=== PATIENT | male | born 1960 | race Caucasian/White ===

== ENCOUNTER 2016-08-16 14:23 | Emergency (ER) | payer BC ==
[~2016-08-16] VITALS: Ht 177.8 cm; Wt 82.0 kg
[~2016-08-16 14:23] MED LIST: ACET1TAB12 PO; ASPI81TA2 PO; CEPH-583 PO; DICY10CA13 PO; OMEP10CA4 PO; ROSU10TA PO; UBID1CAP47 PO; VIT1CAPS21 PO
[2016-08-16 14:25] VITALS: TEMP 97; Ht 177.8 cm; Wt 82.0 kg
--- NOTE | 2016-08-16 14:25 | NUR ---
PROVIDER DR. GARCÍA IN TRIAGE ROOM WITH PT.
--- OUTSIDE RECORDS SUMMARY | 2016-08-16 14:27 | XMS REPORT | Continuity of Care Document ---
Author Author [facility] Organization [facility] Address Unknown Phone Unavailable Allergies Active Description Code Type Severity Reaction Onset Reported/Identified Relationship to Patient Clinical Status Yes No Known Allergies Drug Allergy N/A N/A 08/09/2013 Yes No Known Drug Allergies Drug Allergy N/A N/A 08/09/2013 Yes No Known Food Allergies Food Allergy N/A N/A 08/09/2013 Yes No Known Medication Allergies NKMA N/A N/A 03/28/2014 Medications Problems Date Dx Coded Attending Type Code Diagnosis Diagnosed By 08/09/2013 Mesfin Rachel MD Final 414.01 COR -JENA VESSEL 08/09/2013 Mesfin Rachel MD Final 519.9 RESP SYSTEM DISEASE NOS 08/09/2013 Mesfin Rachel MD Final 530.81 ESOPHAGEAL REFLUX 08/09/2013 Mesfin Rachel MD Final 564.1 IRRITABLE BOWEL SYNDROME 08/09/2013 Mesfin Rachel MD Final 728.85 MUSCLE SPASM 08/09/2013 Mesfin Rachel MD Admitting 786.50 CHEST PAIN NOS 08/09/2013 Mesfin Rachel MD Final 786.59 CHEST PAIN NEC 08/09/2013 Mesfin Rachel MD Final 794.31 NONSPECIFIC ABN EKG/ECG 08/11/2013 Jonh Mckeon MD Final 272.4 HYPERLIPIDEMIA NEC NOS 08/11/2013 Jonh Mckeon MD Final 413.9 ANGINA PECTORIS NEC NOS 08/11/2013 Jonh Mckeon MD 786.50 CHEST PAIN NOS 08/11/2013 Jonh Mckeon MD Admitting 786.59 CHEST PAIN NEC 08/11/2013 Jonh Mckeon MD Final 794.31 NONSPECIFIC ABN EKG/ECG 08/12/2013 Mesfin Rachel MD Final 414.01 COR -JENA VESSEL 08/12/2013 Mesfin Rachel MD Final 564.1 IRRITABLE BOWEL SYNDROME 08/12/2013 Mesfin Rachel MD Final 786.2 COUGH 08/12/2013 Mesfin Rachel MD Final 786.59 CHEST PAIN NEC 08/12/2013 Mesfin Rachel MD Final 794.31 NONSPECIFIC ABN EKG/ECG Procedures Code Description Performed By Performed On 37.22 LEFT HEART CARDIAC CATH Mesfin Rachel MD 08/09/2013 88.53 LT HEART ANGIOCARDIOGRAM Mesfin Rachel MD 08/09/2013 88.56 COR ARTERIOGRAM-2 CATH Mesfin Rachel MD 08/09/2013 Results Encounters ACCT No. Visit Date/Time Discharge Status Pt. Type Provider Facility Loc./Unit Complaint [id number] 08/12/2013 14:18:00 08/12/2013 23 :59:59 CLS Outpatient
--- OUTSIDE RECORDS SUMMARY | 2016-08-16 14:28 | XMS REPORT | Continuity of Care Document ---
Author Author [facility] Organization [facility] Address Unknown Phone Unavailable Care Team Providers Care Tacking Machine Operator Name Role Phone KATLIN BECERRA MD Primary Care Physician [phone] Insurance Providers Guarantor [place] Address [address] [place] [address] Email [email or web address] Policy Number [id number] Subscriber's Name [place] Earl Relationship 18 Self Group Number [id number] Chief Complaint and Reason for Visit Chief Complaint Ear Pain/Injury Reason for Visit Tinnitus Problems Active Problems Medical Problem Onset Date Status Tinnitus Unknown Acute Past Problems Medical Problem Onset Date Tinnitus Unknown Medications Current Home Medications Medication Dose Units Route Directions Days Qty Instructions Start Date Acetaminophen With Codeine (Tylenol With Codeine #3 Tablet) 300-30 Tablet 1-2 Tab Oral Every 4-6 Hours Prn as needed for Pain 20 Tablet 07/30/16 Aspirin 81 Mg Tab.chew 1 Tab Oral Daily 04/26/15 Cephalexin (Keflex) 500 Mg Capsule 500 Mg Oral One Time 1 Capsule 07/30/16 Dicyclomine Hcl 10 Mg Capsule 1 Cap Oral Daily 90 04/25/15 Omeprazole 10 Mg Capsule 10 Mg Oral Daily 04/26/15 Rosuvastatin Calcium (Crestor) 10 Mg Tablet 10 Mg Oral Bedtime Take 1 tablet, by mouth, one time a day at bedtime. 04/25/15 Ubidecarenone/Vit E Acetate (Co Q-10 100 Mg Softgel) 1 Each Capsule 1 Cap Oral Daily 04/25/15 Vit C/Vit E/Lutein/Min/[place]-3 (Ocuvite Softgel) 1 Each Capsule 1 Cap Oral Daily 07/29/16 Social History Social History Problem Response Recorded Date/Time Onset Date Status Chewing Tobacco Status No 08/09/2013 5:52am Not Applicable Not Applicable Hx Substance Use No 07/29/2016 2:23pm Not Applicable Not Applicable Hx Alcohol Use Y OCCASIONALLY 07/29/2016 2:23pm Not Applicable Not Applicable Has the pt used tobacco in the last 12 months No 07/29/2016 2:23pm Not Applicable Not Applicable Tobacco Usage none 08/09/2013 6:26am Not Applicable Not Applicable Hospital Discharge Instructions No hospital discharge instructions. Plan of Care Discharge Date 08/11/16 4:51pm Disposition 01 DISCHARGED HOME, SELF-CARE Condition at Discharge Stable Instructions/Education Provided Tinnitus (ED) Prescriptions See Medication Section Referrals KATLIN BECERRA MD Address: [address] [place] [address] [phone] Additional Instructions/Education Follow with primary care provider. If you're having any worsening symptoms go to the emergency department. Functional Status No functional status results. Allergies, Adverse Reactions, Alerts Allergen Type Severity Reaction Status Last Updated No Known Drug Allergies Allergy Unknown Active 08/11/16 Immunizations Query Response on File Recorded Date/Time Hx Influenza Vaccination Y fall 201507/29/16 2:23pm Hx Pneumococcal Vaccination No 07/29/16 2:23pm Hx Influenza Vaccination Y fall 201507/29/16 2:23pm Influenza Vaccine Hx 02/201608/11/16 4:24pm Tetanus Diptheria Vaccine History UNKNOWN 08/11/16 4:24pm Vital Signs Acute Vital Signs Vital Response Date/Time Temperature (Fahrenheit) 97.4 deg F (96.8 - 99.1) 08/11/2016 4:21pm Temperature (Calculated Celsius) 36.75936 degrees C (36.0 - 37.3) 08/11/2016 4:21pm Temperature Source Temporal 07/30/2016 12:20pm Pulse Rate (adult) 59 bpm (60 - 100) 08/11/2016 4:21pm Respiratory Rate 16 breaths/min (10 - 20) 07/30/2016 1:50pm O2 Sat by Pulse Oximetry 96 % (90 - 100) 08/11/2016 4:21pm Oxygen Delivery Method Room Air 07/30/2016 1:50pm Oxygen Flow Rate 1.00 L/min 07/30/2016 12:35pm Blood Pressure 99/59 mm Hg 08/11/2016 4:21pm Blood Pressure Source Automatic Cuff 07/30/2016 1:50pm Height (Feet) 5 feet 08/11/2016 4:21pm Height (Inches) 10.00 inches 08/11/2016 4:21pm Weight (Kilograms) 82.600 kg 08/11/2016 4:21pm Body Mass Index (BMI) 26.0 08/11/2016 4:21pm Results No known relevant diagnostic tests, laboratory data and/or discharge summary. Procedures Procedure Status Date Provider(s) Revision of upper eyelid Completed 07/30/16 MICHAEL HYMAN MD [id number]"INJECTION, MIDAZOLAM HYDROCHLORIDE, PER 1 MG" Completed 07/30/16"INJECTION, MIDAZOLAM HYDROCHLORIDE, PER 1 MG" Completed 07/30/16"INJECTION, FENTANYL CITRATE, 0.1 MG" Completed 07/30/16"INJECTION, FENTANYL CITRATE, 0.1 MG" Completed 07/30/16"RINGERS LACTATE INFUSION, UP TO 1000 CC" Completed 07/30/16 Encounters Encounter Location Arrival/Admit Date Discharge/Depart Date Attending Provider Departed Emergency Room [facility] 08/11/16 4:15pm 08/11/16 4: 51pm ASHLEY HENDRIX APRN Departed Surgical Day Care [facility] 07/30/16 7:46am 07/30/16 2: 00pm MICHAEL HYMAN MD Recent Diagnosis
--- OUTSIDE RECORDS SUMMARY | 2016-08-16 14:28 | XMS REPORT | Continuity of Care Document ---
Author Author [facility] Organization [facility] Address Unknown Phone Unavailable Allergies Active Description [...] 08/09/2013 Mesfin Rachel MD Final 414.01 COR -KALTAG VESSEL 08/09/2013 Mesfin Rachel MD Final 519.9 [...] 08/12/2013 Mesfin Rachel MD Final 414.01 COR -KALTAG VESSEL 08/12/2013 Mesfin Rachel MD Final 564.1 IRRITABLE BOWEL SYNDROME 08/12/2013 Mesfin Rachel MD Final 786.2 COUGH 08/12/2013 Mefsin Rachel MD Final 786.59 CHEST PAIN NEC 08/12/2013 Mesfin Rachel MD Final 794.31 NONSPECIFIC ABN EKG/ECG Procedures Code Description Performed By Performed On 37.22 LEFT HEART CARDIAC CATH Mesfin Rachel MD 08/09/2013 88.53 LT HEART ANGIOCARDIOGRAM Mesfin Rachel MD 08/09/2013 88.56 COR ARTERIOGRAM-2 CATH Mesfin Rachel MD 08/09/2013 Results Encounters ACCT No. Visit Date/Time Discharge Status Pt. Type Provider Facility Loc./Unit Complaint [id number] 08/12/2013 14:18:00 08/12/2013 23 :59:59 CLS Outpatient
--- NOTE | 2016-08-16 14:35 | NUR ---
RADIOLOGY PT TO RADIOLOGY PER WC
--- NOTE | 2016-08-16 14:37 | ERPDOC ---
Departure Disposition Decision Date: Aug 16, 2016 Disposition Decision Time: 15:51 Disposition: 01 DISCHARGED HOME, SELF-CARE Impression Impression Impression: Primary Impression: Closed head injury Qualified Codes: S09.90XA - Unspecified injury of head, initial encounter Additional Impression: Laceration Severity: Mild Condition: Improved Seen By: Physician only Referrals: KATLIN BECERRA MD (PCP/Family) 2 Days Patient Instructions: Head Injury (ED) Problems/Meds/Labs Reviewed?: Yes Medications reviewed and manag: Yes Follow up care ordered?: Yes Mental Status: Alert, Oriented HPI - Head Injury General Chief Complaint: Head Injury Stated Complaint: HEAD INJURY Time Seen by Provider: 14:29 Source: patient Exam Limitations: no limitations HPI - Head Injury Initial Comments 56-year-old male presents the emergency department with a chief complaint of a closed head injury and laceration to the forehead. 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 Patient notes mild dull discomfort locally at the site of laceration only. He denies any loss of consciousness, headache, or neck pain. Patient denies any other injuries. No other complaints or associated symptoms. There is no radiation of discomfort. He stopped the bleeding with direct pressure. Patient was at home mending fence when the incident occurred. Symptoms have improved in nature since onset. Patient is unsure of the date of his last tetanus vaccine. Occurred At: home Onset: Constant Allergies: Coded Allergies: No Known Drug Allergies (Verified Allergy, Unknown, 08/16/16) Past History Past Medical History Pt denies signifigant PMH Surgical History Denies Surgeries Family History Family History: Negative Vaccines Hx Influenza Vaccination: Yes (FALL 2015) Hx Pneumococcal Vaccination: No Social History Smoking Status: Never smoker Does patient use chewing tobac: No Second Hand Exposure: No Substance Use Type: does not use Substance last used: unknown Alcohol Intake: none, occasionally Review of Systems Constitutional Constitutional: DENIES: chills, fever Eyes General: DENIES: erythema, exudate Lids/Accessories: DENIES: erythema, swelling Vision: DENIES: acuity, blurring ENMT Ears: DENIES: drainage, erythema Hearing: DENIES: hearing loss Balance: DENIES: ataxia, falling to one side Sinuses: DENIES: congestion, pain Nose: DENIES: nosebleeds, pain Mouth/Throat: DENIES: painful swallowing, sore throat Teeth: DENIES: pain Jaw: DENIES: pain Cardiovascular Cardiac: DENIES: chest pain, dyspnea on exertion Rhythm/Rate: DENIES: irregular beat, palpitations Vascular: DENIES: pedal edema, unilateral swelling Pulmonary Respiratory: DENIES: cough, dyspnea, pleuritic chest pain, sputum GI Upper Abdomen: DENIES: nausea, pain, vomiting Lower Abdomen: DENIES: diarrhea, pain General: DENIES: dysuria, pain Musculoskeletal General: DENIES: pain, tenderness Integumentary Skin: DENIES: itching, rash Neurological General: DENIES: headache, numbness, weakness Psychiatric Psychiatric: DENIES: emotional instability, suicidal ideation/attempt Endocrine Endocrine: DENIES: polydipsia, polyphagia Hematologic/Lymphatic Hematologic/Lymphatic: DENIES: frequent nosebleeds, lymphadenopathy Allergic/Immunological Allergic/Immunoligical: DENIES: allergic reactions, hives Physical Exam General General Nourishment: well nourished, well developed, appears stated age, no acute distress, adult General Body Habitus: well groomed Vitals and Pain First Documented Vital Signs Date Time Temp Pulse Resp B/P Pulse Ox O2 Delivery O2 Flow Rate FiO2 08/16/16 14:25 97.0 99 14 126/85 97 Room Air Weight: Kilograms: Height (feet): 5 Height (inches): 10.00 Triage Pain Scale: RN VS reviewed by Provider: Yes Normal Exams: Eyes: Pupils are PERRLA w/ EOMI, No scleral icterus, irritation, or foreign bodies noted ENMT: No facial trauma, nasal exudates, pharyngeal erythema, or exudates are noted Dental: No fractured, loose, or missing teeth noted Neck: Full range of motion, without adenopathy, JVD, bruits or thyromegaly Chest/Resp: Clear all flores, with good airflow, and symmetry bilaterally CV: Regular rate and rhythm, without murmur or gallop, Pulses 2+ all extremities, capillary refill, <2 seconds all ext., no pedal edema noted Abdomen: Bowel sounds positive, soft, non-tender, non-distended, no hepatosplenomegaly, masses or bruits noted Lymphatic: No lymphadenopathy, or lymphedema noted Musculoskeletal: No tenderness, or deformity noted, good range of motion, all extremities Integumentary: No rashes, hives, or bruising noted, hair and nails, without abnormality Neurologic: Patient is alert, and oriented, cranial nerves, motor/sensory/ cerebellar, exams w/o gross deficits, to observation Psychiatric: Patient exhibits, appropriate attention, emotion and affect ENMT (brief) Comments No raccoon eyes, Carter sign, hemotympanum or CSF leak. Mid face is stable. No malocclusion of the jaw. Neck (brief) Neck: NOT FOUND: tenderness Integumentary (brief) Comments 3 cm T-shaped laceration. Superficial. Clean. Linear. Irregularly-shaped. No foreign body. No tendon involvement. Distal neurovascular intact. No active bleeding. Neurologic (brief) Comments Alert and oriented 4. CN 2-12 intact. Sensation intact. Strength normal. Gait normal. Normal coordination. Normal speech. Reflexes 2/4 in all extremities. Absent Babinski bilaterally. Normal motor. No Focal neurologic deficit. Differential Diagnoses Considering: Concussion, Contusion, Skull Fracture, Other (laceration ) Procedures Laceration/Wound Repair Wound/Laceration Repair : Wound Location: head Wound Length (cm): 3 Depth, Shape: superficial Explored: clean Irrigated: saline Anesthesia: 1% Lidocaine Type of Block: local Repaired With: Sutures Suture Size: 5:0 Suture Type: ethilon Number of Sutures: 6 Progress Results/Orders Orders Procedure Category Date Status Time Ct Head W/O Contrast CT 08/16/16 Taken 14:29 Lidocaine 1% PHA 08/16/16 Complete (Xylocaine 1%) 15:30 Tetanus,Diphth,A PHA 08/16/16 Complete Pertus (Tdap) (Adacel) 16:00 Medications Current ED Medications Lidocaine HCl (Xylocaine 1%) 100 mg O ONCE INFIL Last administered on 15:26; Start 08/16/16 at 15:30; Stop 08/16/16 at 15:31; Status DC Diphtheria/ Tetanus/Acell Pertussis (Adacel) 0.5 ml O ONCE IM Last administered on 08/16/16 16:02; Start 08/16/16 at 16:00; Stop 08/16/16 at 16:01 ; Status DC Progress Progress Imaging is discussed in detail with the patient and questions are answered. Patient was given a tetanus booster. Patient's wound was repaired with good approximation by myself. Patient is discharged home in improved condition. Patient is to follow up as instructed. Patient is to return to the emergency Department if his condition worsens or changes in any manner. Patient is in agreement with the current plan of management. Patient is to follow up in 2 days for a wound check. Strict return precautions are provided. CT CT : CT: Head no contrast Interpretation: Normal, Interpreted by Me, Reviewed Written Report BETHANY GARCÍA DO Aug 16, 2016 14:37
--- OUTSIDE RECORDS SUMMARY | 2016-08-16 14:45 | XMS REPORT | Continuity of Care Document ---
Author Author [facility] Organization [facility] Address Unknown Phone Unavailable Allergies Active [...] 08/09/2013 Mesfin Rachel MD Final 414.01 COR -OSAGE VESSEL 08/09/2013 Mesfin Rachel MD Final 519.9 [...] 08/12/2013 Mesfin Rachel MD Final 414.01 COR -OSAGE VESSEL 08/12/2013 Mesfin Rachel MD Final 564.1 [...] Status Pt. Type Provider Facility Loc./Unit Complaint [id number] 08/12/2013 14:18:00 08/12/2013 23 :59:59 CLS Outpatient
--- OUTSIDE RECORDS SUMMARY | 2016-08-16 14:46 | XMS REPORT | Continuity of Care Document ---
Author Author [facility] Organization [facility] Address Unknown Phone Unavailable Allergies Active Description [...] 08/09/2013 Mesfin Rachel MD Final 414.01 COR -[place] VESSEL 08/09/2013 Mesfin Rachel MD Final 519.9 [...] 08/12/2013 Mesfin Rachel MD Final 414.01 COR -T[place] VESSEL 08/12/2013 Mesfin Rachel MD Final 564.1 [...] Status Pt. Type Provider Facility Loc./Unit Complaint [id number] 08/12/2013 14:18:00 08/12/2013 23 :59:59 CLS Outpatient
[2016-08-16] MEDS ORDERED: LORA10TA62 PO (14:58)
[2016-08-16] MEDS ORDERED: LIDOCAINE 1% (10mg/ml) 30ml SDV INFIL ONE (15:30)
--- NOTE | 2016-08-16 15:30 | NUR ---
PROVIDER DR GARCÍA AT BEDSIDE. SUTURES PLACED AT THIS TIME
[2016-08-16] MEDS ORDERED: TETANUS,DIPHTH,a PERTUS (Tdap) 0.5 ML VIAL IM ONE (16:00)
--- NOTE | 2016-08-16 16:03 | NUR ---
TETANUS TDAP ADMINISTERED ORDERED
[2016-08-16 16:12] VITALS: BP 121/79; PULSE 88; RESP 16; O2SAT 97
--- NOTE | 2016-08-16 16:12 | NUR ---
DEPARTURE PT LEFT DEPARTMENT MABULATORY IN NO DISTRESS
--- NOTE | 2016-08-17 09:11 | DI ---
Indication: ITS.REASON: Head trauma with pain following injury PROCEDURE: CT HEAD W/O CONTRAST: Encounter: Initial Comparison: None Technique: Axial CT images through the head were performed without contrast. Iterative Reconstruction dose reducing technique was utilized. FINDINGS: The ventricles are of normal size, shape, and configuration for the patient's age. There is no evidence of acute intracranial hemorrhage, midline displacement, or mass effect. The CT attenuation of the brain parenchyma is normal within the cerebellum, brain stem, and cerebral hemispheres. The tympanic cavities and mastoid air cells are free of appreciable disease. There are no definite fractures of the skull base, calvarium, or visualized portion of the midface. IMPRESSION: No CT evidence of acute traumatic intracranial injury. There is a preliminary report by [facility]. .
== END 2016-08-16 16:12 | disposition home or self-care (01) ==
LOC: ED 14:23
DX: S01.81XA Laceration without foreign body of other part of head, initial encounter (principal); W22.8XXA Striking against or struck by other objects, initial encounter; Y93.H3 Activity, building and construction; Y92.007 Garden or yard of unspecified non-institutional (private) residence as the place of occurrence of the external cause; Y99.8 Other external cause status
CPT/HCPCS: 90471; 90715

== ENCOUNTER 2017-12-06 08:46 | Observation (INO) ==
[2017-12-06] MEDS ORDERED: SALINE FLUSH 10ml SYRINGE IVF PRN (08:50)
--- NOTE | 2017-12-06 08:51 | Emergency Department Report ---
General Adult HPI - General Stated complaint: cp Time Seen by Provider: 12/06/17 08:50 Source: patient, family Mode of arrival: ambulatory Limitations: no limitations - History of Present Illness HPI narrative: 57 M presents to the emergency department with the chief complaint of chest pain. Patient noted onset of symptoms at approximately 0200 today. Patient was at rest when his symptoms began. Symptoms have been persistent in nature since onset. Pain is described as a midsternal pressure with some radiation toward his back. Pain is mild. No other complaints or associated symptoms. Patient does have a history of similar symptoms in the past and underwent a heart cath in [address] Rachel. - Related Data Home Medications Medication Instructions Recorded Confirmed Rosuvastatin [Crestor] 10 mg PO HS #0 04/25/15 12/06/17 Omeprazole 10 mg PO DAILY #0 cap 04/26/15 12/06/17 Loratadine [Claritin] 10 mg PO DAILY #0 08/16/16 12/06/17 vit C 250 mg-E 200 unit-zinc 40 1 tab PO AMHS 09/05/17 12/06/17 mg-copper 1 [id number] capsule Aspirin [Aspirin EC] 81 mg PO DAILY 12/06/17 12/06/17 Dicyclomine [Bentyl] 10 mg PO TID 12/06/17 12/06/17 Fluticasone Nasal Raphine [Flonase] 1 spray LILIAM PRN 12/06/17 12/06/17 Ubidecarenone [Co Q10] 200 mg PO DAILY 12/06/17 12/06/17 Allergies Allergy/AdvReac Type Severity Reaction Status Date / Time No Known Drug Allergies Allergy Unknown Verified 12/06/17 09:33 Review of Systems Constitutional: Denies: fever, chills Eyes: Denies: eye pain, eye discharge ENT: Denies: ear pain, throat pain Cardiovascular: Reports: chest pain. Denies: palpitations Respiratory: Denies: cough, dyspnea Gastrointestinal: Denies: abdominal pain, nausea, vomiting, diarrhea Genitourinary: Denies: urgency, dysuria, frequency Musculoskeletal: Denies: back pain, arthralgia Integumentary: Denies: erythema, rash Neurological: Denies: headache, numbness, paresthesias Psychiatric: Denies: anxiety, depression Endocrine: Denies: polydipsia, polyuria Hematological/Lymphatic: Denies: easy bruising, lymphadenopathy Allergic/Immunologic: Denies: facial swelling, urticaria [facility] Medical History (Last Updated 09/05/17 @ 16:28 by Mone Barragan LPN) Hyperlipidemia (Chronic Medical) Surgical History: *Heart cath Family History: Family History (Last Updated 09/05/17 @ 16:30 by Mone Barragan LPN) Mother Cancer of breast Father Cancer of prostate Brother Cancer of lung - Social History Smoking status: Never smoker Substance use type: does not use Alcohol intake: current Alcohol intake frequency: holidays/special occasions only Physical Exam - Limitations Limitations: no limitations - General General appearance: alert, in no apparent distress - Normal Exams: Head:: Normocephalic without trauma Eyes:: Pupils are PERRLA w/ EOMI, No scleral icterus, irritation, or foreign bodies noted ENMT:: No facial trauma, nasal exudates, pharyngeal erythema, or exudates are noted Dental: No fractured, loose, or missing teeth noted Neck:: Full range of motion, without adenopathy, JVD, bruits or thyromegaly Chest/Respirations:: Clear all flores, with good airflow, and symmetry bilaterally Cardiovascular:: Regular rate and rhythm, without murmur or gallop, Pulses 2+ all extremities, capillary refill, <2 seconds all extremities Abdomen:: Bowel sounds positive, soft, non-tender, non-distended, no hepatosplenomegaly, masses or bruits noted Lymphatic:: No lymphadenopathy, or lymphedema noted Musculoskeletal:: No tenderness, or deformity noted, good range of motion, all extremities Integumentary:: No rashes, hives, or bruising noted, hair and nails, without abnormality Neurological:: Patient is alert, and oriented, cranial nerves, motor/sensory/ cerebellar, exams w/o gross deficits, to observation Psychiatric:: Patient exhibits, appropriate attention, emotion and affect Medical Decision Making - [facility] Narrative Medical decision making narrative: Labs / Imaging were discussed in detail with the patient and questions were answered. Patient was given sublingual nitroglycerin with resolution of pain in the emergency department. He was given 324 mg of aspirin by mouth times one. 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 Hurtado who recommends admission to his service for further evaluation and treatment. Patient is pain-free during his emergency department stay. No further orders from accepting physician who is in agreement with the current plan of management. Patient and family are in agreement with the current plan of management. He is admitted to the hospital in improved condition. - Differential Diagnosis ACS, Pneumothorax, Chest wall pain, NH - Lab Data Result diagrams: 12/06/17 08:57 12/06/17 08:57 - Radiology Data Chest x-ray: No acute processes. - EKG Data EKG #1 EKG results narrative: Sinus bradycardia. 53 bpm. No STEMI. Disposition Clinical Impression: Chest pain Qualifiers: Chest pain type: unspecified Qualified Code(s): R07.9 - Chest pain, unspecified Disposition: 02 To [facility] Condition: Stable Time of Disposition: 11:30 (Admit. Dr. Hurtado. ) - Seen By: physician
[2017-12-06] MEDS ORDERED: NITROGLYCERIN 0.4 MG SUBLINGUAL TABLET SL PRN (08:59)
[2017-12-06] MEDS ORDERED: FentaNYL 100 MCG/2 ML INJECTION IVP ONE (09:32)
[2017-12-06] MEDS ORDERED: ONDANSETRON 4 MG/2 ML INJECTION IVP ONE (09:33)
--- NOTE | 2017-12-06 10:31 | XRay Report ---
Indication: Chest pain starting early this morning PROCEDURE: XR chest 1V: Encounter: Initial Comparison: None FINDINGS: The lungs are clear. There is no abnormal airspace opacity, pleural effusion or pneumothorax identified. The heart size, pulmonary vasculature and mediastinum are within normal limits. No significant skeletal abnormality is seen. IMPRESSION: No acute cardiopulmonary abnormality. .
[2017-12-06] MEDS ORDERED: ASPIRIN 81 MG CHEWABLE TABLET PO ONE (11:57)
[2017-12-06 12:53] VITALS: BMI 25.4
[2017-12-06] MEDS ORDERED: SALINE FLUSH 10ml SYRINGE IV PRN ×2 (15:43→15:46)
--- NOTE | 2017-12-06 15:50 | Cardiology History & Physical ---
History of Present Illness Chief complaint: Chest Pain HPI: Pt is a 57 year old M well known to Dr. Rachel's practice, with PMH including hyperlipidemia and GERD who presented to the emergency department today with the chief complaint of chest pain. Patient noted onset of symptoms at approximately 0200 today. Patient was awoke from sleep when his symptoms began. Symptoms have been persistent in nature since onset. Pain is described as a midsternal pressure with some radiation toward his back. Pain is mild. No other complaints or associated symptoms. Patient does have a history of similar symptoms in the past and underwent a heart cath in [address] Rachel and was found to have mild CAD and received no PCI at that time. In the ER, initial ECG was negative for acute ischemia, and the initial troponin is negative. Pt is admitted to Dr. Hurtado for further evaluation and work-up. Review of Systems - Constitutional Constitutional: Present: as per HPI - EENMT Eyes: Absent: change in vision Mouth/Throat: Absent: sore throat - Cardiovascular Cardiovascular: Absent: chest pain, palpitations, syncope, orthopnea, edema Vascular: Absent: intermittent claudication, pedal edema, unilateral swelling - Respiratory Respiratory: Absent: cough, dyspnea, dyspnea on exertion, wheezing, chest congestion - Gastrointestinal Gastrointestinal: Absent: abdominal pain, constipation, diarrhea, nausea, vomiting - Genitourinary Genitourinary: Absent: hematuria, urinary frequency - Musculoskeletal Musculoskeletal: Absent: arthralgias, muscle weakness - Integumentary/Breasts Integumentary: Absent: rash, wounds - Neurological Neurological: Absent: abnormal gait, confusion, dizziness, vertigo - Psychiatric Psychiatric: Absent: anxiety, depression - Endocrine Endocrine: Absent: cold intolerance, heat intolerance, palpitations - Hematologic/Lymphatic Hematologic/Lymphatic: Absent: easy bleeding, easy bruising [facility] Patient Stated Medical History Angina Yes Gastroesophageal Reflux Yes Disease Clinic Medical History (Last Updated 09/05/17 @ 16:28 by Mone Barragan LPN) Hyperlipidemia (Chronic Medical) Surgical History: *Heart cath Family History: Family History (Last Updated 09/05/17 @ 16:30 by Mone Barragan LPN) Mother Cancer of breast Father Cancer of prostate Brother Cancer of lung - Social History Smoking status: Never smoker Substance use type: does not use Alcohol intake: current Alcohol intake frequency: holidays/special occasions only Medications Home Medications Medication Instructions Recorded Confirmed Type Rosuvastatin [Crestor] 10 mg PO HS #0 04/25/15 12/06/17 History Omeprazole 10 mg PO DAILY #0 cap 04/26/15 12/06/17 History Loratadine [Claritin] 10 mg PO DAILY #0 08/16/16 12/06/17 History vit C 250 mg-E 200 unit-zinc 40 1 tab PO AMHS 09/05/17 12/06/17 History mg-copper 1 [id number] capsule Aspirin [Aspirin EC] 81 mg PO DAILY 12/06/17 12/06/17 History Dicyclomine [Bentyl] 10 mg PO TID 12/06/17 12/06/17 History Fluticasone Nasal [place] [Flonase] 1 spray LILIAM PRN 12/06/17 12/06/17 History Ubidecarenone [Co Q10] 200 mg PO DAILY 12/06/17 12/06/17 History Allergies Allergy/AdvReac Type Severity Reaction Status Date / Time No Known Drug Allergies Allergy Unknown Verified 12/06/17 09:33 Exam Vital signs: Temperature 98.2 F 12/06/17 08:48 Pulse Rate 57 L 12/06/17 15:33 Respiratory Rate 14 12/06/17 15:33 Blood Pressure 114/79 12/06/17 13:00 Pulse Oximetry 95 12/06/17 15:33 - Constitutional no acute distress, well nourished, well developed, cooperative - Routine HEENT Exam Head: Present: normocephalic, atraumatic Eye: Present: EOMI, PERRL ENT: Present: mucous membranes moist - Routine Neck Exam Present: supple, trachea midline. Absent: JVD - Routine Chest/Breast/Axilla Exam Chest wall: Absent: tenderness, pacemaker - Routine Respiratory Exam Absent: accessory muscle use, dyspnea, wheezes - Routine Cardiovascular Exam Present: RRR, S1, S2, no murmur - Routine Abdominal Exam Present: soft, normoactive bowel sounds, non distended, non tender - Routine Extremities Exam Present: pulses intact, normal capillary refill. Absent: cyanosis, clubbing, edema - Routine Skin Exam Present: intact, dry, warm. Absent: cyanosis, rash - Routine Neurological Exam Present: alert, oriented X3, moving all extremities, normal speech - Routine Psychiatric Exam Present: normal affect, normal thought process, cooperative, good judgment Results 12/06/17 08:57 12/06/17 08:57 Cardiac Enzymes 12/06/17 Range/Units 08:57 AST 31 (17-59) U/L Troponin I < 0.012 (0-0.12) ng/ml CBC 12/06/17 Range/Units 08:57 WBC 6.2 (4.5-11.0) T/MM3 RBC 5.09 (4.50-5.90) M/MM3 Hgb 16.1 (13.5-17.5) GM/DL Hct 47.1 (41-53) % Plt Count 139 (130-400) T/MM3 Neut # (Auto) 3.8 (1.8-7.7) T/MM3 Lymph # (Auto) 1.7 (1-4.8) T/MM3 [place] # (Auto) 0.5 (0-0.8) T/MM3 Eos # (Auto) 0.2 (0-0.5) T/MM3 Baso # (Auto) 0.0 (0-0.2) T/MM3 Comprehensive Metabolic Panel 12/06/17 Range/Units 08:57 Sodium 146 (136-146) MEQ/L Potassium 4.2 (3.6-5) MEQ/L Chloride 107 (98-107) MEQ/L Carbon Dioxide 28 (22-30) MEQ/L BUN 15.0 (9-20) MG/DL Creatinine 0.9 (0.8-1.5) mg/dL Glucose 90 (75-110) MG/DL Calcium 9.2 (8.4-10.2) MG/DL AST 31 (17-59) U/L ALT 26 (1-50) U/L Alkaline Phosphatase 87 (38-126) U/L Total Protein 7.5 (6.3-8.2) g/dL Albumin 4.7 (3.5-5.0) g/dL Intake and Output 12/06/17 12/06/17 12/06/17 06:59 14:59 22:59 Intake Total 0 / 0 Balance 0 / 0 Intake: Oral 0 / 0 Other: Weight 80.5 kg Patient Weight 12/07/17 06:59 Weight 80.5 kg - Imaging and Cardiology Echo: pending EKG results: report reviewed - EKG Interpretation EKG: normal ST/T EKG shows: bradycardia EKG interpretations - EKG EKG results cardiology: normal ST/T EKG shows: bradycardia Hospital Course This is a general summary of the patient's hospital course. For more details refer to the complete medical record. Time spent with patient: less than 15 minutes Resuscitation Status: Full Code Assessment and Plan - Assessment and Plan (1) Chest pain Current visit: Yes Status: Acute (2) Hyperlipidemia Current visit: No Status: Chronic (3) GERD (gastroesophageal reflux disease) Current visit: Yes Status: Chronic - Assessment and Plan Chest Pain -Initial ECG: SB, no acute ischemia -Continue to monitor on tele -Initial troponin negative, will trend -CXR negative -Echo Pending -Heart Cath [address] Rachel, minor CAD -Resume home asa and Co-Q 10 -SL nitro prn -Rule out acute SC/blockage -Plan outpatient stress test in near future Hyperlipidemia -Resume home statin -Check lipids GERD -Resume home omeprazole and Bentyl Ramona Nisha BALDERAS acted as scribe to the above documentation per Dr. Hurtado.
[2017-12-06] MEDS: DICYCLOMINE 10mg CAPSULE PO SCH ×2 (16:29→20:06)
[2017-12-06] MEDS: MULTI-VIT + MINERAL (Opti-gen) TABLET PO SCH (20:06)
[2017-12-06] MEDS ORDERED: ROSUVASTATIN 10 MG TABLET PO SCH (21:00)
[2017-12-07 07:57] VITALS: O2SAT 95
[2017-12-07] MEDS ORDERED: OMEPRAZOLE 10 MG CAPSULE PO SCH (09:00)
[2017-12-07] MEDS ORDERED: COENZYME Q-10 200mg TABLET PO SCH (09:00)
[2017-12-07] MEDS ORDERED: ASPIRIN *EC* 81 MG TABLET PO SCH (09:00)
[2017-12-07] MEDS ORDERED: LORATADINE 10 MG TABLET PO SCH (09:00)
[2017-12-07] MEDS: MULTI-VIT + MINERAL (Opti-gen) TABLET PO SCH (09:08)
[2017-12-07] MEDS: DICYCLOMINE 10mg CAPSULE PO SCH (09:09)
[2017-12-07 12:06] VITALS: BP 111/76; PULSE 60; RESP 16; TEMP 97.9
--- NOTE | 2017-12-07 13:36 | Discharge Summary ---
Discharge Information Date of admission: 12/06/17 11:56 Anticipated date of discharge: 12/07/17 Attending Physician: Dar Hurtado MD Primary care physician: Homer Rosen MD - Discharge Diagnosis (1) Hyperlipidemia Status: Chronic (2) Chest pain Status: Acute (3) GERD (gastroesophageal reflux disease) Status: Chronic precordial pain - Laboratory Labs: 12/07/17 04:04 12/07/17 04:04 History of Present Illness HPI: Pt is a 57 year old M well known to Dr. Rachel's practice, with PMH including hyperlipidemia and GERD who presented to the emergency department today with the chief complaint of chest pain. Patient noted onset of symptoms at approximately 0200 today. Patient was awoke from sleep when his symptoms began. Symptoms have been persistent in nature since onset. Pain is described as a midsternal pressure with some radiation toward his back. Pain is mild. No other complaints or associated symptoms. Patient does have a history of similar symptoms in the past and underwent a heart cath in [address] Rachel and was found to have mild CAD and received no PCI at that time. In the ER, initial ECG was negative for acute ischemia, and the initial troponin is negative. Pt is admitted to Dr. Hurtado for further evaluation and work-up. Hospital Course This is a general summary of the patient's hospital course. For more details refer to the complete medical record. Hospital course: Chest pain Current visit: Yes Status: Acute -Initial ECG: SB, no acute ischemia -Continue to monitor on tele -Initial troponin negative, will trend -CXR negative -Echo Pending -Heart Cath [address] Rachel, minor CAD -Resume home asa and Co-Q 10 -SL nitro prn -Rule out acute [place]/blockage -Plan outpatient stress test in near future Hyperlipidemia Current visit: No Status: Chronic -Resume home statin -Check lipids GERD (gastroesophageal reflux disease) Current visit: Yes Status: Chronic -Resume home omeprazole and Bentyl 12/07/17 UT ruled out Schedule for outpatient stress test in the [place] office with follow up following appointment Discharge to home with Nitro Time spent with patient: 25 - 35 minutes Resuscitation Status: Full Code Exam Vital signs: Temperature 97.9 F 12/07/17 12:06 Pulse Rate 60 12/07/17 12:06 Respiratory Rate 16 12/07/17 12:06 Blood Pressure 111/76 12/07/17 12:06 Pulse Oximetry 95 12/07/17 12:06 - Constitutional no acute distress, cooperative - Routine HEENT Exam Head: Present: normocephalic ENT: Present: mucous membranes moist - Routine Neck Exam Absent: JVD, carotid bruit - Routine Chest/Breast/Axilla Exam Chest wall: Absent: tenderness - Routine Respiratory Exam Present: CTA bilaterally. Absent: dyspnea, rales, wheezes - Routine Cardiovascular Exam Present: RRR, no murmur - Routine Abdominal Exam Present: soft, non tender - Routine Extremities Exam Present: no edema - Routine Skin Exam Present: intact, dry, warm - Routine Neurological Exam Present: alert, oriented X3 - Routine Psychiatric Exam Present: normal affect, normal thought process Results 12/07/17 04:04 12/07/17 04:04 Cardiac Enzymes 12/06/17 12/06/17 Range/Units 15:16 20:48 Troponin I < 0.012 < 0.012 (0-0.12) ng/ml Lipids 12/07/17 Range/Units 04:04 Triglycerides 87 (40-160) mg/dL Cholesterol 115 L (132-199) mg/dL HDL Cholesterol 34 L (40-60) mg/dL Cholesterol/HDL Ratio 3.4 (0-5.0) RATIO CBC 12/07/17 Range/Units 04:04 WBC 6.6 (4.5-11.0) T/MM3 RBC 4.81 (4.50-5.90) M/MM3 Hgb 15.4 (13.5-17.5) GM/DL Hct 44.6 (41-53) % Plt Count 124 L (130-400) T/MM3 Neut # (Auto) 4.1 (1.8-7.7) T/MM3 Lymph # (Auto) 1.8 (1-4.8) T/MM3 [place] # (Auto) 0.5 (0-0.8) T/MM3 Eos # (Auto) 0.2 (0-0.5) T/MM3 Baso # (Auto) 0.0 (0-0.2) T/MM3 Comprehensive Metabolic Panel 12/07/17 Range/Units 04:04 Sodium 143 (136-146) MEQ/L Potassium 4.1 (3.6-5) MEQ/L Chloride 108 H (98-107) MEQ/L Carbon Dioxide 26 (22-30) MEQ/L BUN 19.0 (9-20) MG/DL Creatinine 1.0 (0.8-1.5) mg/dL Glucose 86 (75-110) MG/DL Calcium 8.7 (8.4-10.2) MG/DL Intake and Output 12/06/17 12/07/17 12/07/17 22:59 06:59 14:59 Intake Total 640 / 640 Balance 640 / 640 Intake: Oral 640 / 640 Other: # Voids 1 2 Weight 175 lb 7.807 oz Patient Weight 12/08/17 06:59 Weight 175 lb 7.807 oz - Imaging and Cardiology Imaging & Cardiology Narrative: Date of Exam: 12/06/17 Ordering Provider: Bryan Chaudhary DO Type of Exam(s): XR chest 1V Reason for Exam(s): Pain Indication: Chest pain starting early this morning PROCEDURE: XR chest 1V: Encounter: Initial Comparison: None FINDINGS: The lungs are clear. There is no abnormal airspace opacity, pleural effusion or pneumothorax identified. The heart size, pulmonary vasculature and mediastinum are within normal limits. No significant skeletal abnormality is seen. IMPRESSION: No acute cardiopulmonary abnormality. 12/07/17 13:34 Discharge Plan - Med Rec/Dispo Referrals/Follow Up: Dar Hurtado MD [Physician] - 2 Weeks Prescriptions: New Nitroglycerin [Nitrostat] 0.4 mg SL Q5M PRN #25 tab PRN Reason: Chest Pain Continue Loratadine [Claritin] 10 mg PO DAILY #0 Ubidecarenone [Co Q10] 200 mg PO DAILY Fluticasone Nasal [place] [Flonase] 1 spray LILIAM PRN Aspirin [Aspirin EC] 81 mg PO DAILY Rosuvastatin [Crestor] 10 mg PO HS #0 Omeprazole 10 mg PO DAILY #0 cap Dicyclomine [Bentyl] 10 mg PO TID vit C 250 mg-E 200 unit-zinc 40 mg-copper 1 [id number] capsule 1 tab PO AMHS - Disposition 01 Discharged Home, Self-Care - Dismissal Complete Discharge Instructions are:: Complete
--- NOTE | 2017-12-08 12:58 | Echocardiogram ---
DATE OF PROCEDURE 12/07/2017 PROCEDURE PERFORMED Transthoracic 2D echocardiography with M-mode with full color flow and spectral Doppler assessment FINDINGS 1. LEFT VENTRICLE. Left ventricle appears normal in size. Normal wall thickness noted. Left ventricular systolic function is normal, estimated ejection fraction is 60-65%. No significant regional wall motion abnormality is noted. Diastolic function appears normal for age. 2. RIGHT VENTRICLE. Right ventricle appears normal in size. Normal right ventricular wall thickness noted. Normal right ventricular systolic function noted. 3. RIGHT ATRIUM. Right atrium appears normal in size. 4. LEFT ATRIUM. Left atrium appears normal in size. 5. INTERATRIAL SEPTUM. Interatrial septum appears intact. There is no shunting by color flow noted. 6. MITRAL VALVE. Mitral valve appears structurally normal. There is mild mitral regurgitation noted. No significant mitral stenosis. 7. AORTIC VALVE. Aortic valve appears trileaflet in structure. No significant aortic stenosis and no aortic regurgitation noted. 8. TRICUSPID VALVE. Poorly visualized but trivial tricuspid regurgitation noted. 9. PULMONIC VALVE. Poorly visualized on today's study, Trace pulmonic regurgitation noted. 10. INFERIOR VENA CAVA. Normal in size with normal respirovasic variation. 11. PULMONARY ARTERY. Estimated pulmonary artery pressure appears to be within normal range, 25-30 mmHg. SUMMARY 1. Normal left ventricular systolic function, estimated ejection fraction is 60 -65%. 2. Normal LV systolic function. 3. Mild mitral regurgitation. 4. Trivial tricuspid regurgitation. 5. Normal pulmonary artery systolic pressure. MTDD
== END 2017-12-07 14:05 | disposition home or self-care (01) ==
LOC: EDHOLD 08:46 → ED 08:46 → SRG 12:45 → EDHOLD 12:45
PROVIDERS: ADMIT Internal Medicine Interventional Cardiology; ATTEND Internal Medicine Interventional Cardiology